=== PATIENT | female | born 1990 | race African-American/Black ===

== ENCOUNTER 2019-12-05 10:43 | Emergency (ER) | payer OTHER, SELFPAY ==
[2019-12-05 10:53] VITALS: BP 133/79; PULSE 86; RESP 16; TEMP 36.7; O2SAT 99
--- NOTE | 2019-12-05 11:23 | ED.URI ---
HPI - URI/Sore Throat General Chief Complaint: Upper Respiratory Infection Stated Complaint: Fatigue/Sore Throat/Sinus/Body Aches Time Seen by Provider: 12/05/19 11:23 Source: patient Mode of arrival: ambulatory Limitations: no limitations History of Present Illness HPI Narrative: Merry Ashraf is a 28 yo female with hx of depression, ADD, GERD, migraine headaches, who comes to express care with a scratchy throat since last night. No fever, no congestion, no cough Related Data Home Medications Medication Instructions Recorded Confirmed Vitamin B 12 Suppository 1,000 11/18/19 Vitamin D3 11/18/19 cetirizine [Zyrtec] 10 mg PO DAILY 11/18/19 11/18/19 dextroamphetamine-amphetamine 30 mg PO DAILY 11/18/19 11/18/19 [Adderall XR] escitalopram oxalate [Lexapro] 20 mg PO DAILY 11/18/19 11/18/19 medroxyprogesterone [Depo-Provera] 150 mg IM [id number] 11/18/19 11/18/19 medroxyprogesterone [Depo-Provera] mg IM 11/18/19 omeprazole 20 mg PO DAILY 11/18/19 11/18/19 sumatriptan succinate [Imitrex] 25 mg PO ONCE 11/18/19 11/18/19 topiramate [Topamax] 50 mg PO TID 11/18/19 11/18/19 Allergies Allergy/AdvReac Type Severity Reaction Status Date / Time Sulfa (Sulfonamide Allergy Unknown Hives Verified 11/18/19 09:04 Antibiotics) Review of Systems Review of Systems: Narrative: CONSTITUTIONAL: Denies fever, chills, sweats. EYES: Denies visual changes, redness, discharge. ENT: Denies rhinorrhea, congestion, scratchy throat, otalgia. CARDIOVASCULAR: Denies chest pain, palpitations, edema. RESPIRATORY: Denies dyspnea, wheezing, cough GASTROINTESTINAL: Denies abdominal pain, nausea, vomiting, diarrhea. GENITOURINARY: Denies dysuria, hematuria, abnormal discharge SKIN: Denies rash or itching. MUSCULOSKELETAL: Denies acute back pain, joint pain, or myalgia. NEUROLOGIC: Denies numbness, or focal weakness. PSYCHIATRIC: Denies anxiety or depression. [facility] Family History Family History (Updated 12/05/19 @ 11:26 by Niya Sam CNP) Other Hypertension Social History Social History (Updated 12/05/19 @ 11:26 by Niya Sam CNP) Smoking status: Never smoker Alcohol intake: never Gender identity (if verbalized by the patient): Female Comments At time of signature, I agree with nursing past medical, surgical, social and family history. There is no relevant family history pertinent to the presenting complaint. Exam Narrative: Exam Narrative: GENERAL: This is a well-nourished, well-developed patient, complaining of fatigue HEAD: normocephalic, atraumatic. EYES: PERRL. Sclera clear/white. Vision is grossly intact. EARS: External ears normal, auditory canals clear and without drainage, TMs normal without perforation. Hearing grossly intact. NOSE: External nose normal with no obvious nasal discharge, nares without redness, no rhinorrhea. THROAT: Mucous membranes moist, posterior pharynx erythema NECK: Neck supple, non-tender without lymphadenopathy, masses or thyromegaly. CARDIOVASCULAR: Regular rate and rhythm without murmurs, gallops, or rubs. RESPIRATORY: Clear to auscultation. Breath sounds equal bilaterally. No wheezes, rales, or rhonchi. GASTROINTESTINAL: Abdomen soft, non-tender, nondistended. Bowel sounds are active. No hepato-splenomegaly, or palpable masses. No guarding. SKIN: warm, intact with no suspicious lesions or rash, good texture and turgor. NEURO: awake, alert, and oriented to person, place and time. There were no obvious focal neurologic abnormalities. Steady gait EXTREMITIES: Normal range of motion. No edema. No calf tenderness. Negative Homans sign bilaterally. BACK: Nontender without deformity or crepitance. No flank tenderness. Course Vital Signs Vital signs: Vital Signs Temperature 98.1 F 12/05/19 10:53 Pulse Rate 86 12/05/19 10:53 Respiratory Rate 16 12/05/19 10:53 Blood Pressure 133/79 12/05/19 10:53 Pulse Oximetry 99 12/05/19 10:53 Temperature 98.1 F
== END 2019-12-05 12:23 | disposition home or self-care (01) ==
PROVIDERS: Emergency Provider Nurse Practitioner; PCP Family Medicine
DX: J06.9 Acute upper respiratory infection, unspecified (principal); F41.9 Anxiety disorder, unspecified; F90.0 Attention-deficit hyperactivity disorder, predominantly inattentive type; F32.9 Major depressive disorder, single episode, unspecified
CPT/HCPCS: 87081; 87880; 99213; G0463

== ENCOUNTER 2020-01-03 21:06 | Inpatient (IN) | payer OTHER, SELFPAY ==
[2020-01-03] VITALS (7 sets, daily range): BP systolic 133–145; BP diastolic 82–91; PULSE 63–100; RESP 14–20; TEMP 36.3–37; O2SAT 99–100; BMI 40.6
--- NOTE | 2020-01-03 21:24 | PC.NURSE ---
Spoke with Tiffany at Poison Control. Stated peak is 2-2.5 hours. Reports to monitor for HTN, lightheadedness, sedation and fall risk.
--- NOTE | 2020-01-03 21:32 | ECG_ITS ---
Measurements Intervals [place] Rate: 73 P: 35 [place]: 169 QRS: 25 QRSD: 103 T: 29 QT: 386 QTc: 427 Interpretive Statements SINUS RHYTHM NORMAL ECG Electronically Signed On 01-04-2020 8:23:18 CDT by Derrick Moon D.O.
--- NOTE | 2020-01-03 21:35 | ED.OVERDOSE ---
HPI - Overdose General Chief Complaint: Overdose Stated Complaint: od Time Seen by Provider: 01/03/20 21:34 Source: patient and other (Ex-boyfriend) Mode of arrival: ambulatory Limitations: intoxication History of Present Illness HPI Narrative: The pt is a 29 y/o female who presents to the ED c/o intentional overdose onset unknown time tonight. Pt's ex-boyfriend states that they had gotten into an argument and they broke up. She had called later and said she was sorry, and this prompted concern from him. The pt states that she only took Imitrex intending to harm herself. The pt has decreased responsiveness. HPI is limited due to the pt's intoxication. MD complaint: intentional overdose Onset (ago): unknown Intent: other (Intending to harm herself) Context: Intentional Overdose: relationship problems Associated symptoms: other (Decreased responsiveness) Related Data Home Medications Medication Instructions Recorded Confirmed Vitamin B 12 Suppository 1,000 11/18/19 Vitamin D3 11/18/19 cetirizine [Zyrtec] 10 mg PO DAILY 11/18/19 11/18/19 dextroamphetamine-amphetamine 30 mg PO DAILY 11/18/19 11/18/19 [Adderall XR] escitalopram oxalate [Lexapro] 20 mg PO DAILY 11/18/19 11/18/19 medroxyprogesterone [Depo-Provera] 150 mg IM [id number] 11/18/19 11/18/19 medroxyprogesterone [Depo-Provera] mg IM 11/18/19 omeprazole 20 mg PO DAILY 11/18/19 11/18/19 sumatriptan succinate [Imitrex] 25 mg PO ONCE 11/18/19 11/18/19 topiramate [Topamax] 50 mg PO TID 11/18/19 11/18/19 Allergies Allergy/AdvReac Type Severity Reaction Status Date / Time Sulfa (Sulfonamide Allergy Unknown Hives Verified 11/18/19 09:04 Antibiotics) Review of Systems Review of Systems: ROS unobtainable: other (Limited due to the pt's intoxication.) Neurologic: Reports other (Decreased responsiveness) [facility] Past Medical History Medical History (Updated 01/03/20 @ 22:30 by Shine Waggoner DO) ADD (attention deficit disorder) Bipolar disorder Depression GERD (gastroesophageal reflux disease) Kidney stones Migraine Surgical History Surgical History (Updated 01/03/20 @ 21:42 by Ismael Lara) No history of previous surgery Family History Family History (Updated 12/05/19 @ 11:26 by Niya Sam CNP) Other Hypertension Social History Social History (Updated 12/05/19 @ 11:26 by Niya Sam CNP) Smoking status: Never smoker Alcohol intake: never Gender identity (if verbalized by the patient): Female Comments PCP: Dr. Hurtado Exam Narrative: Exam Narrative: APPEARANCE: Sleeping in bed but will awaken to verbal stimuli, no acute distress EYES: EOMI HEENT: Normocephalic, atraumatic, OMM RESPIRATORY: No respiratory distress Clear to auscultation bilaterally with no rhonchi wheezing or rales. CARDIOVASCULAR: Regular rate and rhythm without murmurs rubs or gallops. ABDOMINAL: Soft, nontender, nondistended, no rebound or guarding MUSCULOSKELETAl: Moves all extremities. No clubbing, cyanosis or edema. NEURO: Awake and alert x 3. Following commands, speech normal, no focal deficits SKIN:: Warm, dry. No rashes lesions or abrasions PSYCHIATRIC: Flat affect, positive suicidal ideation Course Course Emergency Course: Poison control was contacted by nursing staff Discussed Dr. Jordan presentation work-up. Request patient received 2 L normal saline and agrees with admission to the ICU Discussed with Dr. Bush presentation work-up. Agrees with admission at this time Discussed with patient and family results of workup and diagnosis. Discussed need for admission. Patient and family understand and agree to current treatment plan Vital Signs Vital signs: Vital Signs Temperature 97.3 F L 01/03/20 21:09 Pulse Rate 100 01/03/20 21:09 Respiratory Rate 14 01/03/20 21:09 Blood Pressure 139/90 01/03/20 21:09 Pulse Oximetry 100 01/03/20 21:09 Temperature 97.3 F L 01/03/20 21:09 Pulse Rate 71 01/03/20 21:20
[2020-01-03 21:47] LABS: Basophils Percent Auto 0.3 % (0.2-1.2); Eosinophils Percent Auto 0.3 % (0-4.4); Hematocrit 43.5 % (37.0-47.0); Hemoglobin 14.2 g/dL (12.0-15.0); Immature Granulocyte Absolute 0.02 K/mm3 (0.00-0.031); Immature Granulocyte Percent A 0.2 % (0-0.5); Lymphocytes Absolute Auto 3.03 K/mm3 (0.9-3.2); Lymphocytes Percent Auto 33.7 % (18.3-44.2); Mean Corpuscular HGB Conc 32.6 g/dl (32-36); Mean Corpuscular Hemoglobin 27.3 pg (26-34); Mean Corpuscular Volume 83.7 fl (80-100); Mean Platelet Volume 9.9 fl (7.4-10.4); Monocytes Absolute Auto 0.8 K/mm3 (0.1-0.6); Monocytes Percent Auto 8.4 % (2.6-8.5); Neutrophils Absolute Auto 5.1 K/mm3 (1.3-6.7); Neutrophils Percent Auto 57.1 % (45.5-73.1); Platelet Count Result 294 k/mm3 (150-375); Red Cell Distribution Width 13.3 % (11.5-14.5)
[2020-01-03 21:59] LABS: Alanine Aminotransferase 18 U/L (4-35); Albumin Level 4.3 g/dL (3.5-5.1); Alkaline Phosphatase 105 U/L (38-126); Aspartate Amino Transferase 21 U/L (14-36); Bilirubin,Total 0.3 mg/dL (0.2-1.3); Blood Urea Nitrogen 10 mg/dL (7-17); Calcium 9.6 mg/dL (8.4-10.2); Carbon Dioxide 27 mmol/L (22-30); Chloride 107 mmol/L (98-107); Estimated Glomerular Filt Rate > 60; Glucose 94 mg/dL (65-105); Potassium 3.5 mmol/L (3.4-5.0); Sodium 140 mmol/L (137-145)
[2020-01-03 22:00] LABS: Acetaminophen < 10 ug/mL (10-30); Ethanol < 10 mg/dL (<10); Salicylate < 1.0 mg/dL (2-20)
[2020-01-03 22:04] LABS: Add Urine Microscopic? YES; Appearance Urine Clear (Clear); Bacteria Urine Trace /hpf; Bilirubin Urine Negative (Negative); Blood Urine Negative (Negative); Color Urine Straw (Yellow); Glucose Urine UA Negative (Negative); Ketones Urine Negative (Negative); Leukocyte Esterase Ur Trace LEU/UL (Negative); Mucus Urine Rare /lpf; Nitrate Urine Negative (Negative); Protein Urine Negative (Negative); RBC Urine 0-2 /hpf (0-2); Specific Grav Ur 1.009 (1.001-1.035); Squamous Epithelial Cell Urine Moderate /hpf (Few); Urobilinogen Urine Negative mg/dL (<2.0); WBC Urine 0-3 /hpf
[2020-01-03 22:06] LABS: Amphetamine Screen Urine Positive (Negative); Barbiturate Screen Urine Negative (Negative); Benzodiazepines Screen Urine Negative (Negative); Cannabinoid Screen Urine Negative (Negative); Cocaine Screen Urine Negative (Negative); Methadone Screen Urine Negative (Negative); Opiate Screen Urine Negative (Negative); Phencyclidine Screen Urine Negative (Negative)
[2020-01-03] MEDS: SODIUM CHLORIDE 0.9% IV 1,000 ML 999 ML IV CONT ×2 (22:35)
--- NOTE | 2020-01-03 23:23 | ADMGEN ---
This patient, Merry Ashraf, was admitted to Intensive Care Unit-1. Patient/family oriented to hospital policies and general routines including ID bracelet, bed and alarms, visiting hours, pain management, procedures, bathroom and other care routines, personal items, smoking policy, room service/diet, and visiting hours. Valuables list has been completed. Information on how to activate the Rapid Response Team has been discussed. Patient/Family are encouraged to report perceived risks to care and to ask questions if they do not understand what they are told or what they should do.
[2020-01-04] VITALS (10 sets, daily range): BP systolic 118–127; BP diastolic 63–88; PULSE 60–79; RESP 13–21; TEMP 36.8–36.9; O2SAT 95–100
[2020-01-04] MEDS: SODIUM CHLORIDE 0.9% IV 1,000 ML 125 ML IV CONT ×2 (00:09→10:27)
[2020-01-04 00:57] LABS: Acetaminophen < 10 ug/mL (10-30); Salicylate < 1.0 mg/dL (2-20)
--- NOTE | 2020-01-04 01:46 | PC.NURSE ---
Marita from Poison control called ICU for pt update. States to monitor for signs of vasoconstriction- headache, flank pain, or mottling. Poison control to call for update later in the am.
--- NOTE | 2020-01-04 03:56 | PC.NURSE ---
Daylight Savings Time For Daylight Savings Time Ending in the Fall - Clocks are moved back. For Daylight Savings Time Beginning in the Spring - Clocks are moved ahead. For [facility], the time of change occurs at 0200 hrs. Time is taken from the kitchen food server. This entry on the patient's chart recognizes the change in time reflected during documentation. Example: 2 entries for vital signs may be charted for 0200 hrs.
[2020-01-04 05:12] LABS: Basophils Percent Auto 0.4 % (0.2-1.2); Eosinophils Percent Auto 0.3 % (0-4.4); Hematocrit 39.7 % (37.0-47.0); Hemoglobin 12.7 g/dL (12.0-15.0); Immature Granulocyte Absolute 0.02 K/mm3 (0.00-0.031); Immature Granulocyte Percent A 0.3 % (0-0.5); Lymphocytes Absolute Auto 2.76 K/mm3 (0.9-3.2); Lymphocytes Percent Auto 36.8 % (18.3-44.2); Mean Corpuscular Hemoglobin 27.3 pg (26-34); Mean Corpuscular Volume 85.4 fl (80-100); Mean Platelet Volume 10.1 fl (7.4-10.4); Monocytes Absolute Auto 0.7 K/mm3 (0.1-0.6); Monocytes Percent Auto 9.9 % (2.6-8.5); Neutrophils Absolute Auto 3.9 K/mm3 (1.3-6.7); Neutrophils Percent Auto 52.3 % (45.5-73.1); Platelet Count Result 248 k/mm3 (150-375); Red Blood Count 4.65 M/mm3 (4.2-5.4); Red Cell Distribution Width 13.3 % (11.5-14.5); White Blood Count 7.5 K/mm3 (4.5-10.0)
[2020-01-04 05:20] LABS: Alanine Aminotransferase 15 U/L (4-35); Albumin Level 3.5 g/dL (3.5-5.1); Alkaline Phosphatase 83 U/L (38-126); Aspartate Amino Transferase 18 U/L (14-36); Bilirubin,Total 0.3 mg/dL (0.2-1.3); Blood Urea Nitrogen 7 mg/dL (7-17); Calcium 8.4 mg/dL (8.4-10.2); Carbon Dioxide 27 mmol/L (22-30); Chloride 111 mmol/L (98-107); Estimated CRCL calculation 146 ml/min; Estimated Glomerular Filt Rate > 60; Glucose 102 mg/dL (65-105); Potassium 3.4 mmol/L (3.4-5.0); Sodium 141 mmol/L (137-145)
--- NOTE | 2020-01-04 08:21 | WPDCNINT ---
Assessment and Plan Assessment and plan (1) Overdose: Code(s): T50.901A - Poisoning by unspecified drugs, medicaments and biological substances, accidental (unintentional), initial encounter Status: Acute Assessment and Plan: patient presented to the ED at [facility] with intentional medication overdose. Patient took handful of Imitrex, does not know how many pills she took. - Tylenol and salicylate levels were within normal limits. - Urine tox screen was positive for methamphetamines: she takes Adderall - patient is currently medically stable for care coordination and crisis management to evaluate (2) Suicidal ideation: Code(s): R45.851 - Suicidal ideations Status: Acute Assessment and Plan: patient did state to the nurse this morning that she is suicidal and was to harm herself - continue suicide precautions in the ICU - bedside sitter (3) ADD (attention deficit disorder): Code(s): F98.8 - Other specified behavioral and emotional disorders with onset usually occurring in childhood and adolescence Status: Acute Assessment and Plan: patient on Adderall at home, will hold for now (4) Bipolar 1 disorder: Code(s): F31.9 - Bipolar disorder, unspecified Status: Acute Assessment and Plan: patient with history of bipolar disorder, on Abilify, lamotrigine, Lexapro (5) GERD (gastroesophageal reflux disease): Code(s): K21.9 - Gastro-esophageal reflux disease without esophagitis Status: Acute Assessment and Plan: will restart omeprazole (6) Migraine: Code(s): G43.909 - Migraine, unspecified, not intractable, without status migrainosus Status: Acute Assessment and Plan: patient on Imitrex home Additional Plan discussed with patient updated her with her condition and plan of care. She was asking me when she can go I did tell her that care coordination and crisis management will evaluate her to see if she has to go to a psych facility before going home. code status: Full code Critical care time spent: 33 minutes Due to a high probability of clinically significant, life threatening deterioration, the patient required my highest level of preparedness to intervene emergently and I personally spent this critical care time directly and personally managing the patient. This critical care time included obtaining a history; examining the patient; pulse oximetry; ordering and review of studies; arranging urgent treatment with development of a management plan; evaluation of patient's response to treatment; frequent reassessment; and discussions with other providers. It was exclusive of separately billable procedures and treating other patients and teaching time. Please see Assessment and Plan section and the rest of the note for further information on patient assessment and treatment Food Taster Consult Note Consult date: 01/04/20 Time Seen: 07:03 Reason for consult: medication overdose, suicide behavior HPI: Merry Ashraf is a 29 year old female with past medical history of ADD, bipolar disorder, depression, GERD, kidney stones, migraine, previous history of suicide attempt in 2004 presented to the ED on 01/03/2020 with intentional overdose. Patient stated she took a handful of Imitrex, unknown quantity. According the records patient's ex-boyfriend stated he had a got into an argument and they broke up. In the ED patient initially had decreased responsiveness. Tylenol levels were < 10, salicylate levels are within normal limits. Urine tox screen was positive for amphetamine. Patient stated smokes marijuana but no cigarettes, drinks alcohol once a month. 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 patient seen and examined this morning in the ICU. Is awake, alert, oriented x3. Denies any shortness of breath, chest pain, abdominal pain, nausea, vomiting, di
[2020-01-04] MEDS: POTASSIUM CHLORIDE 20 MEQ TABLET PO (10:27)
--- NOTE | 2020-01-04 11:17 | PC.NURSE ---
Poison control RN Marita states that this patient case is closed and they have no further concerns about the patient from toxicology standpoint at this time.
--- NOTE | 2020-01-04 13:46 | PM.IMHP ---
H&P: HPI History of Present Illness Chief complaint: overdose-imitrex suicidal ideation Narrative: Merry Ashraf is a 29 year old female female with history of depression, migraine headache bipolar ADD kidney stone and moderately obese patient had argument with her boyfriend she took several tablets of Imitrex to hurt herself patient was brought the emergency department for further evaluation initially patient was slow to respond, patient urine was positive for amphetamine, negative for acetaminophen and salicylate, however was no complaint chest pain shortness of breath palpitation fever or chills patient was admitted to ICU for observation, patient was seen by emt this morning patient is clinically stable, denies any complaints of chest pain shortness of breath dizziness palpitation, patient medically stable will have a crisis team evaluate the patient, patient may need be admitted to inpatient psychiatry care for further evaluation for her psychiatric illness Review of Systems Review of Systems: All systems reviewed & are unremarkable except as noted in HPI and below PMFSH Past Medical History Medical History (Updated 01/04/20 @ 11:23 by Renae Jordan MD) ADD (attention deficit disorder) Bipolar disorder Depression GERD (gastroesophageal reflux disease) Kidney stones Migraine Surgical History Surgical History (Updated 01/03/20 @ 21:42 by Ismael Lara) No history of previous surgery Family History Family History (Updated 01/03/20 @ 23:54 by Lizbeth Whyte RN) Father Diabetes mellitus Sibling Asthma Other Hypertension Social History Social History (Updated 12/05/19 @ 11:26 by Niya Sam CNP) Smoking status: Never smoker Alcohol intake: never Substance use: current Substance use type: marijuana Gender identity (if verbalized by the patient): Female Spiritual care concerns: No Meds Home Medications and Allergies Home Medications Medication Instructions Recorded Confirmed Type cetirizine [Zyrtec] 10 mg PO DAILY 11/18/19 01/03/20 History dextroamphetamine-amphetamine 30 mg PO DAILY 11/18/19 01/03/20 History [Adderall XR] escitalopram oxalate [Lexapro] 20 mg PO DAILY 11/18/19 01/03/20 History medroxyprogesterone [Depo-Provera] 150 mg IM [id number] 11/18/19 01/03/20 History omeprazole 20 mg PO BID 11/18/19 01/03/20 History sumatriptan succinate [Imitrex] 25 mg PO DAILY PRN 11/18/19 01/03/20 History aripiprazole [Abilify] 2 mg PO DAILY 01/03/20 01/03/20 History lamotrigine [Lamictal] 25 mg PO DAILY 01/03/20 01/03/20 History cholecalciferol (vitamin D3) 2,000 unit PO DAILY 01/04/20 01/04/20 History [Vitamin D3] vitamin B complex [B 1 tablet PO DAILY 01/04/20 01/04/20 History Complex-Vitamin B12] Allergies Allergy/AdvReac Type Severity Reaction Status Date / Time Sulfa (Sulfonamide Allergy Unknown Hives Verified 11/18/19 09:04 Antibiotics) Vital Signs Vital Signs - 24 hr 01/03/20 21:09 01/03/20 21:20 01/03/20 21:22 Temperature 97.3 F L Pulse Rate 100 71 Respiratory Rate 14 20 16 Blood Pressure 139/90 145/91 H Pulse Oximetry 100 100 01/03/20 22:41 01/03/20 23:10 01/03/20 23:26 Temperature Pulse Rate 74 74 63 Respiratory Rate 20 20 Blood Pressure 139/88 139/88 Pulse Oximetry 100 100 01/03/20 23:30 01/04/20 00:00 01/04/20 00:16 Temperature 98.6 F Pulse Rate 65 66 73 Respiratory Rate 17 13 Blood Pressure 133/82 122/81 Pulse Oximetry 99 100 01/04/20 03:00 01/04/20 03:01 01/04/20 04:00 Temperature 98.2 F Pulse Rate 67 71 66 Respiratory Rate 15 21 H Blood Pressure 127/80 119/74 Pulse Oximetry 100 95 01/04/20 06:00 01/04/20 08:00 01/04/20 08:11 Temperature 98.4 F Pulse Rate 66 69 Respiratory Rate 20 16 Blood Pressure 118/63 122/79 Pulse Oximetry 100 100 100 01/04/20 10:00 Temperature Pulse Rate 71 Respiratory Rate 19 Blood Pressure 127/88 Pulse Oximetry 100 Exam
--- NOTE | 2020-02-02 14:03 | PM.TDS ---
Transfer Discharge Sum: Prov Provider Date of admission: 01/04/20 09:39 Primary care physician: Shaunna Hurtado, Admitting clinician: Akila Bush DO Consults: 01/03/20 22:28 Consult to Physician Routine Comment: Consulting Provider: Renae Jordan Reason for consultation: overdose Has provider been notified: Yes DS: Diagnosis Admitting Diagnosis Admitting Diagnosis: Poisoning by other nonopioid analgesics and antipyretics, not elsewhere classified, intentional self-harm, initial encounter Transfer Discharge Sum: Med Medications Active and Home Medications: Home Medications cetirizine [Zyrtec] 10 mg PO DAILY 11/18/19 [History Confirmed 01/03/20] escitalopram oxalate [Lexapro] 20 mg PO DAILY 11/18/19 [History Confirmed 01/03/20] medroxyprogesterone [Depo-Provera] 150 mg IM [id number] 11/18/19 [History Confirmed 01/03/20] omeprazole 20 mg PO BID 11/18/19 [History Confirmed 01/03/20] sumatriptan succinate [Imitrex] 25 mg PO DAILY PRN 11/18/19 [History Confirmed 01/03/20] lamotrigine [Lamictal] 25 mg PO DAILY 01/03/20 [History Confirmed 01/03/20] cholecalciferol (vitamin D3) [Vitamin D3] 2,000 unit PO DAILY 01/04/20 [History Confirmed 01/04/20] vitamin B complex [B Complex-Vitamin B12] 1 tablet PO DAILY 01/04/20 [History Confirmed 01/04/20] albuterol sulfate [ProAir HFA] 2 puff INHALATION Q4H PRN #6.7 gm 01/20/20 [Rx] amoxicillin 250 mg PO TID 01/20/20 [History] montelukast [Singulair] 10 mg PO DAILY #7 tablet 01/20/20 [Rx] Transfer Discharge Sum: Hosp Hospital Course Hospital course: Merry Ashraf is a 29 year old female Merry Ashraf is a 29 year old female female with history of depression, migraine headache bipolar ADD kidney stone and moderately obese patient had argument with her boyfriend she took several tablets of Imitrex to hurt herself patient was brought the emergency department for further evaluation initially patient was slow to respond, patient urine was positive for amphetamine, negative for acetaminophen and salicylate, however was no complaint chest pain shortness of breath palpitation fever or chills patient was admitted to ICU for observation, patient was seen by dedicated owner operator this morning patient is clinically stable, denies any complaints of chest pain shortness of breath dizziness palpitation, patient medically stable will have a crisis team evaluate the patient, patient may need be admitted to inpatient psychiatry care for further evaluation for her psychiatric illness, patient was seen by crisis team recommended patient will benefit going to inpatient psychiatry care, will transfer the patient Time Spent with Patient Time attestation: Total time spent providing and/or coordinating transfer services: Patient was seen and examined at the time of the discharge Condition at discharge is stable Code status: Full code. Time spent preparing discharge summary, discharge medications, discussing discharge planning with case planner and patient is 35 minutes. Exam Narrative: Exam Narrative: Patient is moderately obese Const: General: comfortable and no acute distress HENMT: General nose exam: Normal nares present Mouth: Yes moist mucous membranes Eyes: General: appearance normal, both eyes and all related structures Sclera: sclerae normal Neck: Neck: supple Resp: Effort & Inspection: normal respiratory effort Auscultation: clear to auscultation bilaterally Cardio: Rate: regular rate Rhythm: regular rhythm GI: GI Palp: Yes Soft to palpation Auscultation: normal bowel sounds Skin: General skin exam: normal color and no rashes or lesions noted Neuro: Sensory Exam: normal sensation Extrem: General: normal to inspection Psych: Affect: Anxious affect present
== END 2020-01-04 19:00 | DRG 918 ==
LOC: ANHED 22:30 → ANHICU 22:41
PROVIDERS: Admitting Provider Internal Medicine; Emergency Provider Emergency Medicine; PCP Family Medicine; Visit Provider Family Medicine
DX: T39.8X2A Poisoning by other nonopioid analgesics and antipyretics, not elsewhere classified, intentional self-harm, initial encounter (principal); Z68.41 Body mass index [BMI] 40.0-44.9, adult; F32.9 Major depressive disorder, single episode, unspecified; G43.909 Migraine, unspecified, not intractable, without status migrainosus; F98.8 Other specified behavioral and emotional disorders with onset usually occurring in childhood and adolescence; Z87.442 Personal history of urinary calculi; E66.9 Obesity, unspecified; K21.9 Gastro-esophageal reflux disease without esophagitis
CPT/HCPCS: 36415; 51701; 80053; 80307; 81001; 81025; 84443; 85025; 87081; 93005; 96360; 99285; A9270; J7030

== ENCOUNTER 2020-01-20 11:47 | Emergency (ER) | payer OTHER, SELFPAY ==
--- NOTE | ~2020-01-20 | XR_ITS ---
EXAMINATION: XR chest 1V portable INDICATION: Cough and fever TECHNIQUE: Portable AP chest at 1230 hours COMPARISON: None available FINDINGS: The lungs are free of acute opacities. There is no pleural effusion or pneumothorax. The ca rdiomediastinal silhouette is normal. The visualized bones and soft tissues are unremarkable. IMPRESSION: 1. No acute cardiopulmonary abnormality. Reviewed, dictated and finalized at location B.
[2020-01-20 11:51] VITALS: BP 143/74; PULSE 80; RESP 20; TEMP 36.8; O2SAT 100
--- NOTE | 2020-01-20 11:57 | ECG_ITS ---
Measurements Intervals [place] Rate: 75 P: 35 [place]: 162 QRS: 41 QRSD: 89 T: 32 QT: 390 QTc: 438 Interpretive Statements SINUS RHYTHM POSSIBLE LEFT ATRIAL ENLARGEMENT INCOMPLETE RIGHT BUNDLE BRANCH BLOCK BORDERLINE ECG Electronically Signed On 01-20-2020 12:40:05 CDT by Derrick Moon D.O.
[2020-01-20 12:23] VITALS: O2SAT 99
--- NOTE | 2020-01-20 13:00 | ED.GENADULT ---
HPI - General Adult General Chief complaint: Chest Pain Stated complaint: Chest pain, Cough. Time Seen by Provider: 01/20/20 11:52 Source: patient Mode of arrival: ambulatory Limitations: no limitations History of Present Illness HPI narrative: Patient is a 29-year-old female who presents with several days duration of cough sore throat fever chills body aches has been taking her prescribed medicines but no [id number] medications for her symptoms. Patient with mild aching pain to the throat and chest that occurs with breathing coughing and swallowing. Patient on arrival denies vomiting or diarrhea and presents per EMS Related Data Home Medications Medication Instructions Recorded Confirmed cetirizine [Zyrtec] 10 mg PO DAILY 11/18/19 01/03/20 escitalopram oxalate [Lexapro] 20 mg PO DAILY 11/18/19 01/03/20 medroxyprogesterone [Depo-Provera] 150 mg IM [id number] 11/18/19 01/03/20 omeprazole 20 mg PO BID 11/18/19 01/03/20 sumatriptan succinate [Imitrex] 25 mg PO DAILY PRN 11/18/19 01/03/20 lamotrigine [Lamictal] 25 mg PO DAILY 01/03/20 01/03/20 cholecalciferol (vitamin D3) 2,000 unit PO DAILY 01/04/20 01/04/20 [Vitamin D3] vitamin B complex [B 1 tablet PO DAILY 01/04/20 01/04/20 Complex-Vitamin B12] amoxicillin 250 mg PO TID 01/20/20 Allergies Allergy/AdvReac Type Severity Reaction Status Date / Time Sulfa (Sulfonamide Allergy Unknown Hives Verified 01/20/20 11:54 Antibiotics) Review of Systems Review of Systems: All systems reviewed & are unremarkable except as noted in HPI and below PMFSH Past Medical History Medical History ADD (attention deficit disorder) Bipolar disorder Depression GERD (gastroesophageal reflux disease) Kidney stones Migraine Surgical History Surgical History No history of previous surgery Family History Family History (Updated 01/03/20 @ 23:54 by Lizbeth Whyte RN) Father Diabetes mellitus Sibling Asthma Other Hypertension Social History Social History Smoking status: Never smoker Alcohol intake: never Substance use: current Substance use type: marijuana Gender identity (if verbalized by the patient): Female Spiritual care concerns: No Exam Narrative: Exam Narrative: GENERAL: Well-appearing, well-nourished, and in no acute distress. HEAD: Normocephalic, atraumatic. EYES: PERRLA and EOMI. ENT: Nares clear, no rhinorrhea or epistaxis. Mucous membranes moist. Oropharynx with erythema and without tonsillar hypertrophy exudate or other lesions. CHEST: Clear to auscultation. No respiratory distress. No wheezes rales or rhonchi HEART: Regular rate and rhythm. No murmur heard. Normal peripheral pulses. SKIN: Warm, dry, no rash. NEURO: No focal deficits. Alert and oriented x3. PSYCH: Normal mood and affect. Course Course Emergency Course: Patient in the room in no distress Vital Signs Vital signs: Vital Signs Temperature 98.2 F 01/20/20 11:51 Pulse Rate 80 01/20/20 11:51 Respiratory Rate 20 01/20/20 11:51 Blood Pressure 143/74 H 01/20/20 11:51 Pulse Oximetry 100 01/20/20 11:51 Temperature 98.2 F 01/20/20 11:51 Pulse Rate 80 01/20/20 11:51 Respiratory Rate 20 01/20/20 11:51 Blood Pressure 143/74 H 01/20/20 11:51 Pulse Oximetry 99 01/20/20 12:23 Medical Decision Making [facility] Narrative Medical decision making narrative: Patient aware of case findings treatment plan and diagnosis agreeing to follow-up as directed advised to continue her quarantining and to follow with the health department or primary care for further instruction provided with reasons to return Vital Signs Vital Signs: Vital Signs Temperature 98.2 F 01/20/20 11:51 Pulse Rate 80 01/20/20 11:51 Respiratory Rate 20 01/20/20 11:51 Blood Pressure 143/74 H
[2020-01-20 13:04] VITALS: PULSE 70
[2020-01-20 13:22] VITALS: BP 129/81; PULSE 83; RESP 19; O2SAT 100
== END 2020-01-20 13:27 | disposition home or self-care (01) ==
PROVIDERS: Emergency Provider Emergency Medicine; PCP Family Medicine
DX: J06.9 Acute upper respiratory infection, unspecified (principal); F98.8 Other specified behavioral and emotional disorders with onset usually occurring in childhood and adolescence; F31.9 Bipolar disorder, unspecified; K21.9 Gastro-esophageal reflux disease without esophagitis; Z87.442 Personal history of urinary calculi; I45.10 Unspecified right bundle-branch block; R94.31 Abnormal electrocardiogram [ECG] [EKG]
CPT/HCPCS: 71045; 87081; 87804; 87880; 93005; 99283

== ENCOUNTER 2020-01-23 18:01 | Emergency (ER) | payer OTHER, SELFPAY ==
[2020-01-23 18:08] VITALS: BP 134/75; PULSE 94; RESP 16; TEMP 35.9; O2SAT 99
--- NOTE | 2020-01-23 18:17 | ED.FEVER ---
HPI - Fever General Chief Complaint: Fever Stated Complaint: fever/cough/congestion Time Seen by Provider: 01/23/20 18:14 Source: patient and old records reviewed Mode of arrival: ambulatory Limitations: no limitations History of Present Illness HPI Narrative: The pt is a 29 y/o female who presents to the ED c/o intermittent fever onset five days ago. 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 She notes that she had not worked the day her symptoms began. Pt reports chills, myalgia, dry cough, shallow breathing, tickle in the throat, LLANES, CP radiating to the back, and congestion that is always there. She denies N/V/D. Pt notes that she was here previously for treatment three days ago for her symptoms, and was started on an inhaler at that time. Pt states that she is back today because the [facility] wanted her tested for 2019-nCoV. Per old records, pt tested negative for Influenza A, Influenza B, and strep. elicited complaint: fever Onset (ago): day(s) (5) Context: sick contacts (Child at daycare she worked had similar symptoms) Relieving factors: nothing Associated symptoms: chills, myalgias, headache, nasal congestion (Always congested), cough (Dry), chest pain (Radiates to the back) and other ( Tickle in the throat, Shallow breathing) Treatments prior to arrival fever: other (Inhaler) Related Data Home Medications Medication Instructions Recorded Confirmed cetirizine [Zyrtec] 10 mg PO DAILY 11/18/19 01/03/20 escitalopram oxalate [Lexapro] 20 mg PO DAILY 11/18/19 01/03/20 medroxyprogesterone [Depo-Provera] 150 mg IM [id number] 11/18/19 01/03/20 omeprazole 20 mg PO BID 11/18/19 01/03/20 sumatriptan succinate [Imitrex] 25 mg PO DAILY PRN 11/18/19 01/03/20 lamotrigine [Lamictal] 25 mg PO DAILY 01/03/20 01/03/20 cholecalciferol (vitamin D3) 2,000 unit PO DAILY 01/04/20 01/04/20 [Vitamin D3] vitamin B complex [B 1 tablet PO DAILY 01/04/20 01/04/20 Complex-Vitamin B12] amoxicillin 250 mg PO TID 01/20/20 Allergies Allergy/AdvReac Type Severity Reaction Status Date / Time Sulfa (Sulfonamide Allergy Unknown Hives Verified 01/20/20 11:54 Antibiotics) Review of Systems Review of Systems: All systems reviewed & are unremarkable except as noted in HPI and below Constitutional: Constitutional: Reports chills and Reports fever(s) ENT: Reports nasal congestion (Always congested) and Reports other ( Tickle in the throat ) Cardiovascular: Cardiovascular: Reports chest pain (Radiating to the back) Respiratory: Respiratory: Reports cough (Dry) and Reports other (Shallow breathing) Gastrointestinal: Gastrointestinal: Denies diarrhea, Denies nausea and Denies vomiting Musculoskeletal: Musculoskeletal: Reports myalgias Neurologic: Reports headache(s) [facility] Past Medical History Medical History ADD (attention deficit disorder) Bipolar disorder Depression GERD (gastroesophageal reflux disease) Kidney stones Migraine Surgical History Surgical History No history of previous surgery Family History Family History Father Diabetes mellitus Sibling Asthma Other Hypertension Social History Social History Smoking status: Never smoker Alcohol intake: never Substance use: current Substance use type: marijuana Gender identity (if verbalized by the patient): Female Spiritual care concerns: No Comments PCP: Dr. Hurtado Exam Const: General: cooperative, no acute distress and alert Nutritional Appearance: obese Orientation/consciousness: patient oriented x3 Limitations: no limitations Resp: Effort & Inspection: normal respiratory effort Auscultation: clear to auscultation bilaterally Cardio: Rate: regula
[2020-01-23 19:04] VITALS: BP 123/71; PULSE 92; RESP 19; O2SAT 99
--- NOTE | 2020-01-23 19:05 | PC.NURSE ---
Pt was COVID-19 swabbed by this RN, was walked to lab and handed to lab personal./sm
[2020-02-02 08:00] LABS: SARS-CoV-2 RNA: Negative
[2020-02-02 08:01] LABS: Pan-SARS RNA: Negative
== END 2020-01-23 19:06 | disposition home or self-care (01) ==
PROVIDERS: Emergency Provider Emergency Medicine; PCP Family Medicine
DX: B34.9 Viral infection, unspecified (principal); Z20.828 Contact with and (suspected) exposure to other viral communicable diseases; F98.8 Other specified behavioral and emotional disorders with onset usually occurring in childhood and adolescence; F31.9 Bipolar disorder, unspecified; K21.9 Gastro-esophageal reflux disease without esophagitis; Z87.442 Personal history of urinary calculi
CPT/HCPCS: 87635; 99283; U0002

== ENCOUNTER 2020-02-05 11:28 | Emergency (ER) | payer OTHER, SELFPAY ==
[2020-02-05 11:41] VITALS: BP 122/75; PULSE 87; RESP 16; TEMP 36.8; O2SAT 99
--- NOTE | 2020-02-05 11:46 | ED.GENADULT ---
HPI - General Adult General Chief complaint: Urogenital-Female Stated complaint: lower back pain/left side History of Present Illness HPI narrative: Patient is a 29 y/o CF who presents to the via POV for an evaluation of left flank pain that has present for approx. 3 days. Additionally, she reports mild intermittent nausea. No relief with Advil. She will reports taking this medication on day 1 and nonsense. She states standing up straight improves symptoms. History of UTI and kidney stones. She states today symptoms are similar to kidney stones although are less severe. Denies history of pyelonephritisi. Pertinent negatives: fever, chills, sweats, change in appetite, poor p.o. intake, malaise, recent weight loss, myalgias, lymphadenopathy, headache, dizziness, STD exposure, painful intercourse, abdominal pain, constipation, vomiting, diarrhea, abdominal cramping, dysuria, hematuria, urinary frequency/urgency, urinary incontinence, vaginal bleeding/discharge, shortness of breath, chest pain, and heart palpitations/murmurs. Related Data Home Medications Medication Instructions Recorded Confirmed cetirizine [Zyrtec] 10 mg PO DAILY 02/05/20 02/05/20 cholecalciferol (vitamin D3) 50 mcg PO DAILY 02/05/20 02/05/20 [Vitamin D3] cyanocobalamin (vitamin B-12) 1,000 mcg PO DAILY 02/05/20 02/05/20 escitalopram oxalate [Lexapro] 20 mg PO DAILY 02/05/20 02/05/20 lamotrigine [Lamictal] 50 mg PO DAILY 02/05/20 02/05/20 medroxyprogesterone [Depo-Provera] 150 mg IM [id number] 02/05/20 02/05/20 multivitamin 1 tablet PO DAILY 02/05/20 02/05/20 omeprazole magnesium [Prilosec OTC] 20 mg PO BID 02/05/20 02/05/20 sumatriptan succinate [Imitrex] 25 mg PO ONCE 02/05/20 02/05/20 Allergies Allergy/AdvReac Type Severity Reaction Status Date / Time Sulfa (Sulfonamide Allergy Unknown Hives Verified 01/20/20 11:54 Antibiotics) Review of Systems Review of Systems: Narrative: All other systems reviewed and are negative PMFSH Past Medical History Medical History ADD (attention deficit disorder) Bipolar disorder Depression GERD (gastroesophageal reflux disease) Kidney stones Migraine Surgical History Surgical History No history of previous surgery Family History Family History Father Diabetes mellitus Sibling Asthma Other Hypertension Social History Social History Smoking status: Never smoker Alcohol intake: never Substance use: current Substance use type: marijuana Gender identity (if verbalized by the patient): Female Spiritual care concerns: No Comments All other systems reviewed and are negative Exam Narrative: Exam Narrative: GENERAL: Well-appearing, well-nourished, and in no acute distress. HEAD: Normocephalic, atraumatic. NECK: Supple. No lymphadenopathy or nuchal rigidity. CHEST: Lung sounds are clear to auscultation in bilateral lung reyes. No respiratory distress. HEART: Regular rate and rhythm. No murmur, gallop, or rub heard. ABDOMEN: Soft, non-distended, normal active bowel sounds in all quadrants. Mild suprapubic tenderness and left sided CVA tenderness palpated upon examination. No guarding. No rebound tenderness. No pulsatile or palpable abdominal mass(es). : Bladder non-distended, non-tender EXTREMITIES: Normal range of motion. No edema. SKIN: Warm, dry, no rash. No skin color changes. Excellent turgor. NEURO: No focal deficits. Alert and oriented x3. SPECIAL OBSERVATIONS: Smiling. Laughing. No evidence of discomfort. C/O of of proportion to exam. Eating XXX. Running around. Tolerates food/fluids. Course Vital Signs Vital signs: Vital Signs Temperature 98.3 F 02/05/20 11:41 Pulse Rate 87 02/05/20 11:41 Respiratory Rate 16 02/05/20 11:41 B
== END 2020-02-05 12:11 | disposition home or self-care (01) ==
PROVIDERS: Emergency Provider Nurse Practitioner Family; PCP Family Medicine
DX: R10.9 Unspecified abdominal pain (principal); F31.9 Bipolar disorder, unspecified; K21.9 Gastro-esophageal reflux disease without esophagitis
CPT/HCPCS: 81003; 99213; G0463

== ENCOUNTER 2024-04-27 00:31 | Emergency (ER) | payer OTHER, SELFPAY ==
[2024-04-27 00:29] VITALS: BP 120/82; PULSE 105; RESP 21; TEMP 36.7; O2SAT 100
[2024-04-27 00:38] VITALS: PULSE 105
--- NOTE | 2024-04-27 01:11 | ECG_ITS ---
Test Date: 2024-04-27 01:22:01 Measurements Intervals [place] Rate: 93 P: 40 NM: 191 QRS: 16 QRSD: 95 T: 62 QT: 380 QTc: 473 Interpretive Statements SINUS RHYTHM POSSIBLE LEFT ATRIAL ENLARGEMENT [-0.1mV P WAVE IN V1/V2] NONSPECIFIC T-WAVE ABNORMALITY No previous ECG available for comparison Electronically Signed On 04-27-2024 16:14:15 CDT by Blaise Witt M.D.
[2024-04-27 01:44] LABS: Basophils Percent Auto 0.3 % (0.2-1.2); Eosinophils Absolute Auto 0.1 K/mm3 (0-0.3); Eosinophils Percent Auto 1.1 % (0-4.4); Hematocrit 34.9 % (37.0-47.0); Hemoglobin 10.7 g/dL (12.0-15.0); Immature Granulocyte Absolute 0.07 K/mm3 (0.00-0.031); Immature Granulocyte Percent A 0.6 % (0-0.5); Lymphocytes Absolute Auto 2.19 K/mm3 (0.9-3.2); Lymphocytes Percent Auto 18.4 % (18.3-44.2); Mean Corpuscular HGB Conc 30.7 g/dl (32-36); Mean Corpuscular Hemoglobin 22.2 pg (26-34); Mean Corpuscular Volume 72.4 fl (80-100); Mean Platelet Volume 9.2 fl (7.4-10.4); Monocytes Absolute Auto 0.9 K/mm3 (0.1-0.6); Monocytes Percent Auto 7.4 % (2.6-8.5); Neutrophils Absolute Auto 8.6 K/mm3 (1.3-6.7); Neutrophils Percent Auto 72.2 % (45.5-73.1); Platelet Count Result 492 k/mm3 (150-375); Red Blood Count 4.82 M/mm3 (4.2-5.4); White Blood Count 11.9 K/mm3 (4.5-10.0)
[2024-04-27 01:55] LABS: Anisocytosis 1+; Hypochromasia 1+; Platelet Estimate Adequate (Adequate); Schistocytes None Seen
--- NOTE | 2024-04-27 02:00 | ED.GENADULT ---
HPI - General Adult General Chief complaint: Dizziness Stated complaint: NEAR SYNCOPE, DIZZY Time Seen by Provider: 04/27/24 01:04 History of Present Illness HPI narrative: Patient 33-year-old female who presents emergency department with chief complaint of dizziness. The patient reports that she was at [facility] after she had been in [place] at an event and apparently had an edible the patient states that she ate dinner at [facility] and then felt very weak and lightheaded the patient reports that she has not used notable like this before in the past patient denies chest pain denies shortness of breath Related Data Home Medications Medication Instructions Recorded Confirmed cetirizine 10 mg tablet (Zyrtec) 10 mg PO DAILY 02/05/20 02/05/20 cholecalciferol (vitamin D3) 50 50 mcg PO DAILY 02/05/20 02/05/20 mcg (2,000 unit) capsule (Vitamin D3) cyanocobalamin (vitamin B-12) 1,000 mcg PO DAILY 02/05/20 02/05/20 1,000 mcg tablet escitalopram oxalate 20 mg tablet 20 mg PO DAILY 02/05/20 02/05/20 (Lexapro) lamotrigine 25 mg tablet (Lamictal) 50 mg PO DAILY 02/05/20 02/05/20 medroxyprogesterone 150 mg/mL 150 mg IM [id number] 02/05/20 02/05/20 intramuscular suspension (Depo-Provera) multivitamin 1 tablet PO DAILY 02/05/20 02/05/20 omeprazole magnesium 20 mg 20 mg PO BID 02/05/20 02/05/20 tablet,delayed release (Prilosec OTC) sumatriptan succinate 25 mg tablet 25 mg PO ONCE 02/05/20 02/05/20 (Imitrex) Allergies Allergy/AdvReac Type Severity Reaction Status Date / Time Sulfa (Sulfonamide Allergy Unknown Hives Verified 01/20/20 11:54 Antibiotics) Review of Systems Review of Systems: A 10 system review of systems was completed on the patient and is negative except for what is stated in the HPI. Nursing and ancillary documentation was reviewed. [facility] Past Medical History Medical History (Updated 04/27/24 @ 05:13 by Taiwo Hall MD) ADD (attention deficit disorder) Bipolar disorder Depression GERD (gastroesophageal reflux disease) Kidney stones Migraine Surgical History Surgical History No history of previous surgery Family History Family History Father Diabetes mellitus Sibling Asthma Other Hypertension Social History Social History Smoking status: Never smoker Alcohol intake: never Substance use: current Substance use type: marijuana Gender identity (if verbalized by the patient): Female Spiritual care concerns: No Exam Narrative: GENERAL: Well-appearing, well-nourished, and in no acute distress. HEAD: Normocephalic, atraumatic. EYES: PERRLA and EOMI. ENT: Nares clear, no rhinorrhea or epistaxis. Mucous membranes moist. NECK: Supple. CHEST: Clear to auscultation. No respiratory distress. HEART: Regular rate and rhythm. No murmur heard. Normal peripheral pulses. ABDOMEN: Soft, nontender, nondistended, normal active bowel sounds. EXTREMITIES: Normal range of motion. No edema. SKIN: Warm, dry, no rash. NEURO: No focal deficits. Alert and oriented x3. PSYCH: Normal mood and affect. Course Vital Signs Vital signs: Vital Signs Temperature 36.7 C 04/27/24 00:29 Pulse Rate 105 H 04/27/24 00:29 Respiratory Rate 21 H 04/27/24 00:29 Blood Pressure 120/82 04/27/24 00:29 Pulse Oximetry 100 04/27/24 00:29 Oxygen Delivery Room Air 04/27/24 00:29 Temperature 36.7 C 04/27/24 00:29 Pulse Rate 105 H 04/27/24 00:38 Respiratory Rate 21 H 04/27/24 00:29 Blood Pressure 120/82 04/27/24 00:29 Pulse Oximetry 100 04/27/24 00:29 Oxygen Delivery Room Air 04/27/24 00:29 Medical Decision Making MDM Narrative Medical decision making narrative: differential diagnosis includes electrolyte abnormality, cannabis in
[2024-04-27 02:06] LABS: Alanine Aminotransferase 50 U/L (6-35); Albumin Level 4.2 g/dL (3.5-5.1); Alkaline Phosphatase 78 U/L (38-126); Anion Gap 10 mmol/L (4-12); Aspartate Amino Transferase 30 U/L (14-36); Bilirubin,Total 0.4 mg/dL (0.2-1.3); Blood Urea Nitrogen 12 mg/dL (7-17); Carbon Dioxide 26 mmol/L (22-30); Chloride 104 mmol/L (98-107); Estimated CRCL calculation 126 ml/min; Estimated Glomerular Filt Rate > 60; Glucose 160 mg/dL (65-110); Potassium 2.7 mmol/L (3.4-5.0); Sodium 140 mmol/L (137-145)
[2024-04-27 02:09] LABS: Ethanol < 10 mg/dL (<10)
[2024-04-27 02:13] LABS: Amphetamine Screen Urine Negative (Negative); Barbiturate Screen Urine Negative (Negative); Benzodiazepines Screen Urine Negative (Negative); Cannabinoid Screen Urine Positive (Negative); Cocaine Screen Urine Negative (Negative); Methadone Screen Urine Negative (Negative); Opiate Screen Urine Negative (Negative); Phencyclidine Screen Urine Negative (Negative)
[2024-04-27 02:42] LABS: Appearance Urine Cloudy (Clear); Bacteria Urine Rare /hpf; Bilirubin Urine Negative (Negative); Blood Urine Non-Hemolyzed Trace (Negative); Color Urine Yellow (Yellow); Glucose Urine UA Negative (Negative); Ketones Urine Trace mg/dL (Negative); Leukocyte Esterase Ur Negative LEU/UL (Negative); Need Manual Microscopic Reviewed; Nitrate Urine Negative (Negative); Protein Urine 2+ mg/dL (Negative); Specific Grav Ur 1.025 (1.001-1.035); Squamous Epithelial Cell Urine Few /hpf (Few); WBC Urine 0-5 /hpf (0-3); pH Urine 6.5 (5.0-9.0)
[2024-04-27] MEDS: SODIUM CHLORIDE 0.9% IV 1,000 ML 999 ML IV CONT ×2 (02:42→03:55)
[2024-04-27] MEDS: POTASSIUM CHLORIDE 20 MEQ PACKET (FOR LIQUID) 40 MEQ PO (02:42)
[2024-04-27] MEDS: KCL 20 MEQ/SW 100 ML 100 ML 50 MEQ IVPB (02:42)
[2024-04-27 02:43] LABS: Add Urine Microscopic? YES
== END 2024-04-27 05:28 | disposition home or self-care (01) ==
PROVIDERS: Emergency Provider Emergency Medicine
DX: R53.1 Weakness (principal); E87.6 Hypokalemia; K21.9 Gastro-esophageal reflux disease without esophagitis; F98.8 Other specified behavioral and emotional disorders with onset usually occurring in childhood and adolescence; F31.9 Bipolar disorder, unspecified; Z87.442 Personal history of urinary calculi; Z79.3 Long term (current) use of hormonal contraceptives; Z79.899 Other long term (current) drug therapy
CPT/HCPCS: 36415; 80053; 80307; 81001; 85025; 93005; 96365; 99284; A9270; J3480; J7030